=== PATIENT | male | born 1980 ===

== ENCOUNTER 2021-09-17 17:02 | Emergency (ER) | payer SELFPAY ==
[2021-09-17] MEDS ORDERED: Dexameth. Sod Phosp. 10 MG/ML (CHEMO USE ONLY) ONE (17:58)
== END 2021-09-17 19:27 | disposition home or self-care (01) ==
LOC: ERS 17:02
DX: H57.89 Other specified disorders of eye and adnexa (principal)
CPT/HCPCS: 99283; J1100